=== PATIENT | male | born 2000 | race Two or more races ===

== ENCOUNTER 2025-01-28 19:04 | Emergency (ER) | payer OTHER ==
[~2025-01-28] VITALS: Ht 172.7 cm; Wt 73.0 kg
[2025-01-28 19:09] VITALS: BP 146/85; PULSE 98; RESP 18; TEMP 98.7; O2SAT 100
== END 2025-01-29 02:35 | disposition left against medical advice (07) ==
LOC: ER 19:04 → EDBD 19:04 → ER 01-29 02:35
DX: S81.812A Laceration without foreign body, left lower leg, initial encounter (principal); Z53.21 Procedure and treatment not carried out due to patient leaving prior to being seen by health care provider; V89.2XXA Person injured in unspecified motor-vehicle accident, traffic, initial encounter; Y93.89 Activity, other specified; Y92.89 Other specified places as the place of occurrence of the external cause; Y99.8 Other external cause status